=== PATIENT | male | born 1970 | race Caucasian/White ===

== ENCOUNTER → 2017-08-25 | Outpatient (CLI) | payer OTHER ==
--- NOTE | 2017-08-25 22:37 | MR ---
MRI CERVICAL SPINE: CLINICAL HISTORY: Neck pain per order. Neck pain with clicking causing pain or weakness into both arm s for 4 months per patient. TECHNIQUE: Multiplanar, multisequence imaging of the cervical spine is performed without IV contrast. COMPARISON: None. FINDINGS: Sagittal images of the cervical spine show the craniocervical junction to appear within nor mal limits. The cervical and upper thoracic spinal cord is normal in course, caliber, and signal. V ertebral alignment is anatomic. The vertebral body and intravertebral disk heights are normal. Poste rior disc herniation C3-C4 levels effacing the anterior thecal sac on sagittal images. The bone marija ow signal intensity is within normal limits. No significant spurring is seen. Axial images show the C2-C3 level to appear within normal limits. Axial images at C3-C4 level show broad-based right paracentral disc protrusion effacing the anterolat eral thecal sac, there is moderate right and mild left-sided neural foraminal narrowing at this level identified. Axial images at C4-C5 level show uncovertebral facet degenerative changes on the right causing mild r ight-sided neural foraminal narrowing. Left-sided neural foramen is patent. Spinal canal is preserved . Axial images at C5-C6 level shows right-sided foraminal disc protrusion causing asymmetric mild to mo derate right-sided neural foraminal narrowing. Left-sided neural foramen is patent. Spinal canal is p reserved. Axial images at C6-C7 level show increased signal posteriorly consistent with annular tear with small central disc protrusion mildly effacing anterior thecal sac, bilateral neural foramina are patent. Axial images at C7-T1 level are felt within normal limits. There is partial visualization of thyroid gland with scattered heterogeneous slightly T2 hyperintense areas, largest inferior right isthmus on axial image 1 is just over 1 cm in size. Follow-up advised. IMPRESSION: Multilevel degenerative changes most prominent at C3-C4 level as detailed above. Suspect multinodular thyroid, follow-up thyroid ultrasound is advised to better evaluate and characterize.
== END | disposition home or self-care (01) ==
LOC: RADMRIMAIN 18:57
PROVIDERS: ATTEND Family Medicine
DX: M50.31 Other cervical disc degeneration, high cervical region (principal)
CPT/HCPCS: 72141